=== PATIENT | male | born 1955 ===

== ENCOUNTER 2017-08-06 19:52 | Emergency (ER) | payer OTHER ==
[2017-08-06 20:23] VITALS: BP 112/76; PULSE 87; RESP 14; TEMP 99.1; O2SAT 97
[2017-08-06] MEDS: NAPROXEN 500 MG TAB PO ONE (20:25)
[2017-08-06] MEDS ORDERED: NAPROXEN 500 MG TAB ONE (20:28)
== END 2017-08-06 21:05 | disposition home or self-care (01) ==
LOC: ED 19:52
DX: S93.402A Sprain of unspecified ligament of left ankle, initial encounter (principal); X50.1XXA Overexertion from prolonged static or awkward postures, initial encounter
CPT/HCPCS: 99282